=== PATIENT | male | born 1985 | race Caucasian/White ===

== ENCOUNTER 2020-11-11 17:09 | Emergency (ER) | payer SELFPAY ==
[~2020-11-11] VITALS: Ht 167.6 cm; Wt 99.8 kg
--- NOTE | 2020-11-11 17:10 | NUR ---
Patient to ER bed H1 to gown for evaluation. Side rails up.
[2020-11-11 17:12] VITALS: BP_SYST 152
--- NOTE | 2020-11-11 17:12 | NUR ---
Pt brought by PD, ambulatory, pt presents to ER for medical clerance, pt arrested by police and rash/ itching noted on abdomen, pt afebrile, denies SOB or thoat tightness, afebrile, will cont to monitor.
[2020-11-11] MEDS ORDERED: DIPHENHYDRAMINE HCL 12.5 MG/5 ML UDC PO ONE (17:15)
--- NOTE | 2020-11-11 17:20 | NUR ---
Dr Van evaluating patient at bedside
[2020-11-11 17:29] VITALS: BP_SYST 148
--- NOTE | 2020-11-11 17:30 | NUR ---
Patient given written and verbal discharge instructions and verbalizes understanding. ER MD discussed with patient the results and treatment provided. Patient in stable condition. ID arm band removed. No Rx given. Patient educated on pain management and to follow up with PMD. Pain Scale 0/10 . Opportunity for questions provided and answered. Medication side effect fact sheet provided.
== END 2020-11-11 17:29 ==
LOC: SED 17:09
DX: R21 Rash and other nonspecific skin eruption (principal); Z88.0 Allergy status to penicillin
CPT/HCPCS: 99283